=== PATIENT | female | born 1980 | race Caucasian/White ===

== ENCOUNTER → 2016-07-16 | Outpatient (CLI) | payer OTHER | LOC: LAB 15:56 | DX: R73.09 Other abnormal glucose (principal) ==

== ENCOUNTER → 2016-10-08 | Outpatient (CLI) | payer OTHER | LOC: LAB 10:15 | DX: R10.31 Right lower quadrant pain (principal); R19.00 Intra-abdominal and pelvic swelling, mass and lump, unspecified site; Z87.42 Personal history of other diseases of the female genital tract ==

== ENCOUNTER → 2016-10-09 | Outpatient (CLI) | payer OTHER | LOC: RAD 09:23 | DX: N83.201 Unspecified ovarian cyst, right side (principal) | CPT/HCPCS: Q9967 ==